=== PATIENT | female | born 1950 | race Caucasian/White ===

== ENCOUNTER → 2016-10-13 | Day surgery (SDC) | payer MEDICARE ==
[~2016-10-13] MED LIST: FLAX SEED OIL1000 M1 PO; NO MEDICATIONS; ZOLOFT PO
--- NOTE | ~2016-10-13 | OR ---
Unit #: [id number] #: [id number] Patient: MINNIE GR [id number] [address] [place], [place] [address] [id number] O MR#: [id number] NAME: MINNIE GR ROOM: Date of Procedure: 10/13/2016 Admission Date: 10/13/2016 Surgeon: Antelmo Crawley M.D. : 1950 Attending Physician: Antelmo Crawley M.D. Primary Care Physician: Pam Acuña M.D. OPERATIVE REPORT PROCEDURE PERFORMED Sigmoidoscopy to 60 cm. MEDICATIONS Monitored anesthesia. POSTOPERATIVE FINDINGS 1. Perianal area appears to be normal. Tattooing was seen from previous marking. No recurrent growth was seen. 2. Colonic mucosa within the visualized part was completely normal also. PLAN Sigmoidoscopy in 1 year. DESCRIPTION OF PROCEDURE The patient was explained of the procedure, risks, and benefits along with the risks and benefits of anesthesia. She was brought to the endoscopy room. Propofol anesthesia was given. Rectal exam was done, which was normal. Colonoscope was lubricated, passed up the rectum, advanced up to 60 cm. At this point, I started to pull the scope out. I retroflexed in the rectum to look at the perianal area. Findings have been described above. No recurrent growth was seen. Gently, the scope was pulled out. She tolerated it well. Dictated by... Jeronimo Finnegan/rosa maria TD: 10/13/2016 22:33 JOB #: [id number] Unit #: [id number] #: [id number] Patient: MINNIE GR OPERATIVE REPORT Page 1 of 1 X Antelmo Crawley MD X PROCEDURE OPERATIVE NOTE
== END | disposition home or self-care (01) ==
LOC: COPS 09:41
DX: Z85.048 Personal history of other malignant neoplasm of rectum, rectosigmoid junction, and anus (principal); Z85.44 Personal history of malignant neoplasm of other female genital organs; Z90.49 Acquired absence of other specified parts of digestive tract; Z90.710 Acquired absence of both cervix and uterus; Z98.890 Other specified postprocedural states